=== PATIENT | male | born 1950 | race Caucasian/White ===

== ENCOUNTER 2024-12-22 14:36 | Emergency (ER) | payer OTHER, MEDICARE, SELFPAY ==
--- NOTE | ~2024-12-22 | XR_ITS ---
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 RESULT: Lines, tubes, and devices: None. Lungs and pleura: Clear. Cardiomediastinal silhouette: Unremarkable. Other: No acute osseous or upper abdominal finding. IMPRESSION: No acute cardiopulmonary process. Reviewed, dictated and finalized at location K. SUPERINTENDENT
--- NOTE | 2024-12-22 14:38 | ECG_ITS ---
Test Date: 2024-12-22 14:47:54 Measurements Intervals [place] Rate: 53 P: 37 MA: 190 QRS: -10 QRSD: 107 T: 41 QT: 435 QTc: 411 Interpretive Statements SINUS BRADYCARDIA No previous ECG available for comparison Electronically Signed On 12-22-2024 22:01:31 [employer]UL TRUCK DRIVER by Julissa Bullard M.D.
[2024-12-22 14:40] VITALS: BP 183/76; PULSE 62; RESP 18; TEMP 36.4; O2SAT 100
[2024-12-22 15:03] LABS: Basophils Percent Auto 0.3 % (0.2-1.2); Eosinophils Absolute Auto 0.1 K/mm3 (0-0.3); Eosinophils Percent Auto 0.7 % (0-4.4); Hematocrit 46.2 % (42.0-52.0); Immature Granulocyte Absolute 0.02 K/mm3 (0.00-0.031); Immature Granulocyte Percent A 0.2 % (0-0.5); Lymphocytes Absolute Auto 4.75 K/mm3 (0.9-3.2); Lymphocytes Percent Auto 43.4 % (18.3-44.2); Mean Corpuscular HGB Conc 34.6 g/dl (32-36); Mean Corpuscular Volume 86.7 fl (80-100); Mean Platelet Volume 10.5 fl (7.4-10.4); Monocytes Absolute Auto 1.1 K/mm3 (0.1-0.6); Monocytes Percent Auto 9.6 % (2.6-8.5); Neutrophils Percent Auto 45.8 % (45.5-73.1); Platelet Count Result 150 k/mm3 (150-375); Red Blood Count 5.33 M/mm3 (4.6-6.20); Red Cell Distribution Width 12.3 % (11.5-14.5); White Blood Count 10.9 K/mm3 (4.5-10.0)
[2024-12-22 15:12] LABS: Alanine Aminotransferase 27 U/L (6-50); Albumin Level 4.4 g/dL (3.5-5.1); Alkaline Phosphatase 54 U/L (38-126); Anion Gap 9 mmol/L (4-12); Aspartate Amino Transferase 39 U/L (17-59); Bilirubin,Total 1.7 mg/dL (0.2-1.3); Blood Urea Nitrogen 15 mg/dL (9-20); Calcium 9.3 mg/dL (8.4-10.2); Carbon Dioxide 26 mmol/L (22-30); Chloride 104 mmol/L (98-107); Estimated Glomerular Filt Rate > 60; Glucose 122 mg/dL (65-110); Lipase 100 U/L (23-300); Potassium 4.2 mmol/L (3.4-5.0); Sodium 139 mmol/L (137-145)
[2024-12-22 15:15] LABS: INR 1.1; Prothrombin Time 14.6 Seconds (11.1-14.7)
[2024-12-22 15:16] LABS: Partial Thromboplastin Time 24.2 Seconds (22.3-36.8)
[2024-12-22 15:23] LABS: Troponin I < 0.012 ng/mL (0.000-0.034)
--- NOTE | 2024-12-22 17:43 | ECG_ITS ---
Test Date: 2024-12-22 18:28:40 Measurements Intervals [place] Rate: 51 P: 0 ND: 0 QRS: -6 QRSD: 107 T: 40 QT: 446 QTc: 413 Interpretive Statements ATRIAL FIBRILLATION WITH SLOW VENTRICULAR RESPONSE ABNORMAL RHYTHM ECG Compared to ECG 12/22/2024 14:47:54 Sinus bradycardia no longer present Electronically Signed On 12-22-2024 22:00:05 SALESPERSON JEWELRY by Julissa Bullard M.D.
[2024-12-22 18:56] LABS: Troponin I < 0.012 ng/mL (0.000-0.034)
--- NOTE | 2024-12-22 19:47 | ED_ITS ---
HPI - Chest Pain General Chief Complaint: Chest Pain Stated Complaint: cp Time Seen by Provider: 12/22/24 19:44 Source: patient Mode of arrival: ambulatory Limitations: no limitations History of Present Illness HPI narrative: Patient is a 74-year-old male who presents the ED with multiple complaints. Patient reports having left-sided chest pressure intermittently for the last 3 days. Seems to notice the pressure more often at rest or when he is lying down to sleep. He denies aggravation of pressure with exertion. He has been exercising at home and denies aggravation of pain with this. Denies radiation of pain to neck, jaw, arm. Patient also reports having diffuse body aches, fatigue, urinary frequency, mild dysuria. Denies any shortness of breath, pleuritic pain, dizziness, lightheadedness, cough, congestion, rhinorrhea, fevers, lower extremity pain or swelling. Patient does not take any medications on a regular basis. Denies history of HTN, HLD, DM. He does have FHx of heart disease. Related Data Allergies Allergy/AdvReac Type Severity Reaction Status Date / Time No Known Allergies Allergy Verified 12/22/24 14:38 Review of Systems 2 Review of Systems: All systems reviewed & are unremarkable except as noted in HPI. All systems reviewed & are unremarkable except as noted in HPI and below Exam 2 Narrative: GENERAL: Well appearing, well-nourished, non-toxic, in no acute distress. HEAD: Normocephalic, atraumatic. RESPIRATORY: Airway patent, respirations nonlabored. Clear to auscultation bilaterally, no rales, rhonchi, wheezing. CARDIOVASCULAR: Regular rate and rhythm without murmurs, rubs, or gallops. ABDOMINAL: Soft, no tenderness, nondistended. Normoactive BS. MUSCULOSKELETAL: Moves all extremities. No gross deformities. No peripheral edema. No calf tenderness. No tenderness throughout anterior chest wall. SKIN: Warm, dry, normal color. NEURO: A&O X3. Speech clear. Cranial nerves II-XII grossly intact. Steady gait. No ataxic movements. PSYCHIATRIC: Appropriate mood and affect. Normal interaction. Course Vital Signs Vital signs: Vital Signs Temperature 97.6 F 12/22/24 14:40 Pulse Rate 62 12/22/24 14:40 Respiratory Rate 18 12/22/24 14:40 Blood Pressure 183/76 H 12/22/24 14:40 Pulse Oximetry 100 12/22/24 14:40 Oxygen Delivery Room Air 12/22/24 14:40 Temperature 97.6 F 12/22/24 14:40 Pulse Rate 56 L 12/22/24 20:32 Respiratory Rate 16 12/22/24 20:32 Blood Pressure 189/93 H 12/22/24 20:32 Pulse Oximetry 96 12/22/24 20:32 Oxygen Delivery Room Air 12/22/24 20:28 MDM - Chest Pain MDM Narrative Medical decision making narrative: EKG nonischemic X2. Sinus bradycardia, no significant ST changes. Trop undetectable X3. Patient's pain has been ongoing for the past 3 days. Given this, very low suspicion for ACS. CXR is clear. HEART score =3. Low risk Well's score, no evidence of DVT, no SOB/GUILLEN, no tachycardia/tachypnea/hypoxia. Low suspicion for PE. Remainder basic laboratory studies are unremarkable. Stable electrolytes. Viral swabs negative. Discussed overall reassuring workup with patient. Feel he is safe for discharge home at this time. Discussed possibility of viral syndrome, musculoskeletal etiology. Recommended close follow-up with PCP for further evaluation within the next 1 week. Advised to discuss outpatient stress testing with PCP as patient does have some risk factors. Discussed strict return precautions. Patient voiced understanding. He feels comfortable going home. Discharged in stable condition. Medical Records Data Attestation: I reviewed the patient's medical records. Lab Data Attestation: I reviewed the patient's lab results. 12/22/24 14:54 12/22/24 14:54 Labs: Lab Results 12/22/24 12/22/24 12/22/24 Range/Units 14:54 14:55 18:24 WBC 10.9 H (4.5-10.0) K/mm3 RBC 5.33 (4.6-6.20) M/mm3 Hgb 16.0 (14.0-18.0) g/dL Hct 46.2 (42.0-52.0) % MCV 86.7 (80-100) fl MCH 30.0 (26-34) pg MCHC 34.6 (32-36) g/dl RDW 12.3 (11.5-14.5) % Plt Count 150 (150-375) k/mm3 MPV 10.5 H (7.4-10.4) fl Immature Gran % (Auto) 0.2 (0-0.5) % Neut % (Auto) 45.8 (45.5-73.1) % Lymph % (Auto) 43.4 (18.3-44.2) % Beaver % (Auto) 9.6 H (2.6-8.5) % Eos % (Auto) 0.7 (0-4.4) % Baso % (Auto) 0.3 (0.2-1.2) % Lymph # (Auto) 4.75 H (0.9-3.2) K/mm3 Beaver # (Auto) 1.1 H (0.1-0.6) K/mm3 Eos # (Auto) 0.1 (0-0.3) K/mm3 Baso # (Auto) 0.0 (0.0-0.1) K/mm3 Abs Immat Gran (auto) 0.02 (0.00-0.031) K/mm3 Absolute Neuts (auto) 5.0 (1.3-6.7) K/mm3 Absolute Nucleated RBC 0.000 (0.0-0.012) K/mm3 Nucleated RBC % 0.0 (0.0-0.2) % PT 14.6 (11.1-14.7) Seconds INR 1.1 APTT 24.2 (22.3-36.8) Seconds Sodium 139 (137-145) mmol/L Potassium 4.2 (3.4-5.0) mmol/L Chloride 104 (98-107) mmol/L Carbon Dioxide 26 (22-30) mmol/L Anion Gap 9 (4-12) mmol/L BUN 15 (9-20) mg/dL Creatinine 0.83 (0.7-1.3) mg/dL Estim Creat Clear Calc Not Reportable Estimated GFR > 60 (59 - ) Glucose 122 H (65-110) mg/dL Calcium 9.3 (8.4-10.2) mg/dL Magnesium 2.3 (1.6-2.3) mg/dL Total Bilirubin 1.7 H (0.2-1.3) mg/dL AST 39 (17-59) U/L ALT 27 (6-50) U/L Alkaline Phosphatase 54 (38-126) U/L Troponin I < 0.012 < 0.012 (0.000-0.034) ng/mL Total Protein 7.0 (6.3-8.2) g/dL Albumin 4.4 (3.5-5.1) g/dL Lipase 100 (23-300) U/L Urine Color (Yellow) Urine Appearance (Clear) Urine pH (5.0-9.0) Ur Specific [place] (1.001-1.035) Urine Protein (Negative) mg/dL Urine Glucose (UA) (Negative) mg/dL Urine Ketones (Negative) mg/dL Ur Blood (Man) (Negative) Urine Nitrate (Negative) Urine Bilirubin (Negative) Urine Urobilinogen (<2.0) mg/dL Leukocyte Esterase Rfl (Negative) DEON/UL Influenza A (RT-PCR) (Negative) Influenza B (RT-PCR) (Negative) RSV (RT-PCR) (Negative) SARS-CoV-2 RNA (RT-PCR) (Negative) 12/22/24 12/22/24 Range/Units 19:56 21:05 WBC (4.5-10.0) K/mm3 RBC (4.6-6.20) M/mm3 Hgb (14.0-18.0) g/dL Hct (42.0-52.0) % MCV (80-100) fl MCH (26-34) pg MCHC (32-36) g/dl RDW (11.5-14.5) % Plt Count (150-375) k/mm3 MPV (7.4-10.4) fl Immature Gran % (Auto) (0-0.5) % Neut % (Auto) (45.5-73.1) % Lymph % (Auto) (18.3-44.2) % Beaver % (Auto) (2.6-8.5) % Eos % (Auto) (0-4.4) % Baso % (Auto) (0.2-1.2) % Lymph # (Auto) (0.9-3.2) K/mm3 Beaver # (Auto) (0.1-0.6) K/mm3 Eos # (Auto) (0-0.3) K/mm3 Baso # (Auto) (0.0-0.1) K/mm3 Abs Immat Gran (auto) (0.00-0.031) K/mm3 Absolute Neuts (auto) (1.3-6.7) K/mm3 Absolute Nucleated RBC (0.0-0.012) K/mm3 Nucleated RBC % (0.0-0.2) % PT (11.1-14.7) Seconds INR APTT (22.3-36.8) Seconds Sodium (137-145) mmol/L Potassium (3.4-5.0) mmol/L Chloride (98-107) mmol/L Carbon Dioxide (22-30) mmol/L Anion Gap (4-12) mmol/L BUN (9-20) mg/dL Creatinine (0.7-1.3) mg/dL Estim Creat Clear Calc Estimated GFR (59 - ) Glucose (65-110) mg/dL Calcium (8.4-10.2) mg/dL Magnesium (1.6-2.3) mg/dL Total Bilirubin (0.2-1.3) mg/dL AST (17-59) U/L ALT (6-50) U/L Alkaline Phosphatase (38-126) U/L Troponin I < 0.012 (0.000-0.034) ng/mL Total Protein (6.3-8.2) g/dL Albumin (3.5-5.1) g/dL Lipase (23-300) U/L Urine Color Yellow (Yellow) Urine Appearance Clear (Clear) Urine pH 6.0 (5.0-9.0) Ur Specific [place] 1.010 (1.001-1.035) Urine Protein Negative (Negative) mg/dL Urine Glucose (UA) Negative (Negative) mg/dL Urine Ketones Trace H (Negative) mg/dL Ur Blood (Man) Negative (Negative) Urine Nitrate Negative (Negative) Urine Bilirubin Negative (Negative) Urine Urobilinogen 1.0 (<2.0) mg/dL Leukocyte Esterase Rfl Negative (Negative) DEON/UL Influenza A (RT-PCR) Negative (Negative) Influenza B (RT-PCR) Negative (Negative) RSV (RT-PCR) Negative (Negative) SARS-CoV-2 RNA (RT-PCR) Negative (Negative) Imaging Data Attestation: I personally reviewed and interpreted this imaging study as follows: Radiologist's impression: ITS Impressions Chest X-Ray 12/22/24 15:24 IMPRESSION: No acute cardiopulmonary process. ECG Data EKG #1: Attestation: I personally reviewed and interpreted this ECG as follows: ECG completion date: 12/22/24 ECG completion time: 14:47 EKG Interpretation: bradycardia (53), sinus rhythm and non-specific ST changes Discharge Plan Discharge Clinical Impression: Atypical chest pain, Myalgia Fatigue Qualifiers: Fatigue type: unspecified Qualified Code(s): R53.83 - Other fatigue Patient Disposition: Home, Self-Care Condition: Stable Instructions: Antibiotic Form, Angina (ED), Chest Pain (ED), Viral Syndrome (ED) Additional Instructions: Your workup here was reassuring. Stay well hydrated at home. Recommend Tylenol and ibuprofen as needed for discomfort. Follow-up closely with your primary care doctor for further evaluation and to discuss potential outpatient cardiac stress testing. Return to the ED if you experience worsening or severe pain, difficulty breathing or feeling short of breath, unable to keep down food or drink, persistent fevers, coughing blood, pain or swelling in legs, numbness or weakness of arm or leg, or any other symptoms of concern. Patient Language: Ukrainian Follow-up/Referrals: PHYSICIAN NOT ON STAFF,NONSTAFF [Primary Care Provider] - Time of Disposition: 22:02 Quality HEART score for chest pain patients History: slightly suspicious ECG: normal Age: > or = to 65 years Risk factors: 1 or 2 risk factors Troponin: < or = to 1x normal limit Heart score: 3
[2024-12-22] MEDS: ASPIRIN 81 MG CHEWABLE TABLET 324 MG PO (20:24)
[2024-12-22] MEDS: ASPIRIN 81 MG CHEWABLE TABLET 324 MG (20:26)
[2024-12-22 20:28] VITALS: O2SAT 98
[2024-12-22 20:32] VITALS: BP 189/93; PULSE 56; RESP 16; O2SAT 96
[2024-12-22 20:36] LABS: Influenza A QL RT-PCR Negative (Negative); Influenza B QL RT-PCR Negative (Negative); RSV RNA, RT-PCR Negative (Negative); SARS-CoV-2 RNA PCR Negative (Negative)
--- OUTSIDE RECORDS SUMMARY | 2024-12-22 20:42 | XMS_ITS | Encounter Summary ---
Author Name [facility] Organization [facility] Address [address] [place] [address] Care Team Providers Care Planner/Scheduler Name Role Phone JORGE ROLAND Primary Care Provider Unavailabl e Insurance Providers: All historical and current Section Date Range: From patient's date of to the date document was created. This section includes the names of all active insurance providers for the patient. Insurance Provider Type of Coverage Plan Name Start of Policy Coverage End of Policy Coverage Group Number Member ID Insurance Provider's Telephone Number Policy Hernández's Name Patient's Relationship to Policy Hernández MEDICARE (WNR) MEDICARE (M) PART A Aug 27, 2016 PART A [id number] DIANEGALI HARRIS PATIENT MEDICARE (WNR) MEDICARE (M) PART B Aug 27, 2016 PART B [id number] [phone] DIANEGALI OLIVIA PATIENT Selected Encounter This section includes the information on record at [place] for the Encounter. Date/Time Encounter Type Encounter Description Reason Pro vider Source Jul 09, 2024 02:34 PM Outpatient Encounter ADMIN PAT ACTIVTIES (MASNONCT) I[facility] Encounter Template Text not used by [facility] Plan of Treatment: Future Appointments (+ 6 months) and Future Tests (+/- 45 days) The Plan of Treatment section includes future care activities for the patient from all [facility] treatmentfacilities. This section includes future appointments and future orders which are active, pending or scheduled. Future Appointments This section includes appointments that were scheduled to occur 6 months from the date of the Encounter, up to a maximum of 20 appointments. The data comes from all [place] treatment facilities. Appointment Date/Time Appointment Type Appointme nt Facility Name Sep 05, 2024 12:00 PM [facility]BULATORY - NONE [facility] Active, Pending, and Scheduled Orders This section includes a listing of several types of active, pending, and scheduled orders, including clinic medications orders, diagnostic test orders, procedure orders and consult orders; where the start date of the order is 45 days before the date of the Encounter or 45 days after the date of theEncounter. The data comes from all [facility]. Test Date/Time Test Type Test Details Facility Name Jul 04, 2024 12:00 AM Laboratory - Chemi stry Order CBC W/DIFF BLOOD SP ONCE [facility] Lab Results: +/- 30 days of the encounter This section includes the Chemistry and Hematology Lab Results on record with [place] for the patient. Radiology Reports and Pathology Reports are provided separately, in subsequent sections. Lab Results This section contains the Chemistry/Hematology Results that were resulted 30 days before or 30 daysafter the date of the Encounter. Date/Time Source Result Type Result - Unit Interpretation Reference Range Comment Jun 27, 2024 10:05 AM [facility] A1C % Specimen Type: BLOOD Comment: Normal: < or = 5.6% Pre-diabetes: 5.7-6.4% Diabetes Mellitus: > or = 6.5% Values obtained from A1C measurements can vary. For typical A1C assays, a reported value of 7.0 could actually be between 6.72 and 7.28 if measured by a reference method. A reported value of 9.0 could actually be between 8.73 and 9.27. Ref: http://www.ngs p.org/CAPdata. asp Ordering Provider: SHYANNE ISAAC Report Released Date/Time: Jul 06, 2023 11:20 AM Reporting Lab: [facility] [address] [facility] [address] Performing Lab: [address] [address] A1C % 5.6 0.0-5.6 Jun 27, 2024 10:05 AM [facility] LIPID PNL Specimen Type: PLASMA Comment: Low-risk levels (desirable) <200 mg/dL Moderate-risk levels (borderline) 200-239 mg/dL High-risk levels: >= 240 mg/dL Normal: <150 mg/dL -Borderline High: 1580-199 mg/dL -High: 200-499 mg/dL -Very High: >500 mg/dL eGFR was calculated using the CKD-EPI Creatinine (2020) equation. Optimal: <100 mg/dL -Near Optimal/Above Optimal: 100-129 mg/dL -Borderline High: 130-159 mg/dL -High: 160-189 mg/dL -Very High: >=190 mg/dL Ordering Provider: SHYANNE ISAAC Report Released Date/Time: Jul 06, 2023 11:20 AM Reporting Lab: [address] [address] Performing Lab: [address] [phone] DIR. HDL 45 mg/dL L >=60 TRIGLYCERIDES 59 mg/dL See Comment DIR LDL canc CHOL 155 mg/dL See Comment LDL (CALCULATED) 98 mg/dL See Comment Jun 27, 2024 10:05 AM [facility] URINE ALBUMIN/CREAT (RAND URINE) Specimen Type: URINE Comment: MALB/CREAT ratio cannot be calculated-azalea lyte outside linearity. Ordering Provider: SHYANNE ISAAC Report Released Date/Time: Jul 06, 2023 11:20 AM Reporting Lab: [address] [address] Performing Lab: [address] [address] URINE ALBUMIN(RAND URINE) <0.3 mg/dL <2.0 CREAT(RNDM URINE) 28.90 mg/dL L 40-278 CREAT RATIO (RNDM URINE) comment mg/g <30 Jun 27, 2024 10:05 AM [facility] THYROID CASCADE PANEL Specimen Type: SERUM Comment: Deficiency <20, Insufficiency 20-30, Sufficiency 30-100, Toxicity >100 ng/mL Ordering Provider: SHYANNE ISAAC Report Released Date/Time: Jul 06, 2023 11:20 AM Reporting Lab: [address] [phone] Performing Lab: [address] [address] TSH3 ULTRA EIA 2.752 u[IU]/mL 0.550-4.78 0 Jun 27, 2024 10:05 AM [facility] COMPREHENSIVE PNL Specimen Type: PLASMA Comment: Low-risk levels (desirable) <200 mg/dL Moderate-risk levels (borderline) 200-239 mg/dL High-risk levels: >= 240 mg/dL Normal: <150 mg/dL -Borderline High: 1580-199 mg/dL -High: 200-499 mg/dL -Very High: >500 mg/dL eGFR was calculated using the CKD-EPI Creatinine (2020) equation. Optimal: <100 mg/dL -Near Optimal/Above Optimal: 100-129 mg/dL -Borderline High: 130-159 mg/dL -High: 160-189 mg/dL -Very High: >=190 mg/dL Ordering Provider: SHYANNE ISAAC Report Released Date/Time: Jul 06, 2023 11:20 AM Reporting Lab: [address] [phone] Performing Lab: [address] [address] ANION GAP 9 mmol/L 5-15 EGFR 87 mL/min > 60 GLUCOSE 95 mg/dL 70-99 POTASSIUM 4.2 mmol/L 3.5-4.7 SODIUM 144 mmol/L 136-145 BILI,TOTAL 1.0 mg/dL 0.2-1.2 PROTEIN, TOTL 6.9 g/dL 5.7-8.2 ALBUMIN 4.3 g/dL 3.4-5.0 ALKAL PHOS 54 U/L 45-117 ALT 26 U/L 10-65 AST 26 U/L 10-37 UREA NITROGEN 10 mg/dL 7-21 CALCIUM, TOTAL 8.8 mg/dL 8.7-10.4 CO2 25 mmol/L 21-32 CHLORIDE 110 mmol/L H 98-109 CREATININE 0.93 mg/dL 0.67-1.17 Jun 27, 2024 10:05 AM [facility] VITAMIN D 25-HYDROXY Specimen Type: SERUM Comment: Deficiency <20, Insufficiency 20-30, Sufficiency 30-100, Toxicity >100 ng/mL Ordering Provider: SHYANNE ISAAC Report Released Date/Time: Jul 06, 2023 11:20 AM Reporting Lab: [address] [address] Performing Lab: [address] [address] VITAMIN D 25-HYDROXY 68.80 ng/mL 30-100 Advance Directives: All historical and current Section Date Range: From patient's date of to the date document was created. This section includes ALL of a patient's completed or amended VA Advance and Rescinded Directives. The entries below indicate that a directive exists for the patient, but an actual copy is not included with this document. The data comes from all [place] facilities. Date Advance Directives Provider Source Aug 28, 2015 ADVANCE DIRECTIVE DISCUSSION [facility] Encounter Notes: All associated encounter notes This section contains the clinical notes associated to the Encounter. Date/Time Encounter Note(s) Provider Source Jul 09, 2024 02:34 PM PHYSICIAN NOTE: LOCAL TITLE: PROVIDER/MEDICATION RECONCILIATION STANDARD TITLE: PHYSICIAN NOTE DATE OF NOTE: JUL 09, 2024@14:34:15 ENTRY DATE: JUL 09, 2024@14:34:16 AUTHOR: JORGE ROLAND COSIGNER: URGENCY: STATUS: COMPLETED [address] [address] [place]UR[place] JUL 09, [address] [place] [address] [place], [place] [address] Patient: BURT CONTRERAS (: 1950) A list of reconciled medications was mailed or sent via secure messaging to the /Caregiver. The following medication list was reviewed with the patient/caregiver: The [place]/caregiver was counseled on new medications and/or medication changes. Potential risks, benefits, and alternative to medications prescribed were discussed with /caregiver who was given an opportunity to ask questions, which were answered to the best of my ability and seemingly to their satisfaction. /caregiver was/were instructed to contact provider (means provided) with any concerns or questions. INCLUDED IN THIS LIST: Alphabetical list of active outpatient prescriptions dispensed from this [facility] (local) and dispensed from another VA or [facility]D facility (remote) as well as inpatient orders (local pending and active), local clinic medications, locally documented non-VA medications, and local prescriptions that have or been discontinued in the past 90 days. NOTE The display of VA prescriptions dispensed from another VA or DoD facility (remote) is limited to active outpatient prescription entries matched to National Drug File at the originating site and may not include some items such as investigational drugs, compounds, etc. NOT INCLUDED IN THIS LIST: Medications self-entered by the patient into personal health records (i.e. [employer]) are not included in this list. Non-VA medications documented outside this [place], remote inpatient orders (regardless of status) and remote clinic medications are NOT included in this list. The patient and provider must always discuss medications the patient is taking, regardless of where the medication was dispensed or obtained. Patient safety alert: Medications and allergies from [facility] facilities may be incomplete. Reference [facility] for full list. Allergies/ADRs Facility Allergen (Reaction) -------- [facility] INFLUENZA (RASH) [facility] Facilities No Allergy/ADR Data available Med Reconciliation --- Patient is taking the following medications: --- CYCLOBENZAPRINE HCL 10MG TAB (OUTPT Status: ACTIVE) Take one-half tablet by mouth two times a day as needed for muscle spasm Usually Taken for: Muscle relaxer GABAPENTIN 800MG TAB (OUTPT Status: ACTIVE) Take one tablet by mouth every 8 hours as needed Usually Taken for: Pain/Neuropathy KETOCONAZOLE 2% CREAM,TOP (NON-VA Status: ACTIVE) Thin film topically Usually Taken for: Infection LIDOCAINE 5% PATCH (OUTPT Status: ACTIVE) Rau4pjtoznneewbiftaapdc,hairlessareae verydayasneededforpain ud[id number] oheatactivatethe adhesive. remove patch(es) after 12 hours and leave off for 12 hours. Usually Taken for: Pain NAPROXEN 500MG TAB (OUTPT Status: ACTIVE) Takeonetabletbymouthtwotimesadayasnee dedforpainandinflammation withfoodifpossible Usually Taken for: Pain RITUXIMAB INJ,SOLN (NON-VA Status: ACTIVE) 13.4 ml under the skin every 30 days Usually Taken for: Chemotherapy/Immunosuppressant /es/ JORGE ROLAND Physician Assembler Filters Date printed: JUL 09, 2024 15:13 JORGE Arce [facility]
--- OUTSIDE RECORDS SUMMARY | 2024-12-22 20:42 | XMS_ITS | Continuity of Care Document ---
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 It does not include entries that were removed or entered in error. Problem Status Onset Date Problem Type Date of Resolution Comments Source Tinea Active 9 Condition Nov 17, 2019 Entered By: CECILE GARZA Comment: presents with id reaction as well [facility] History of chronic lymphocytic leukemia (SNOMED CT [id number]) Active 6 Condition [facility] CLBP - chronic low back pain Active Condition [facility] Elevated blood pressure Active Condition [facility] Elevated blood-pressure reading without diagnosis of hypertension Active Condition [facility] Insomnia Active Condition [facility] Polyp of colon Active Condition Jun 282015 Entered By: JUANA BURGOS Comment: last c-scope 2015 w/ f/up in 5 yrs [facility] Diagnosis: ICD-10-CM Z00.01 Encounter for general adult medical exam w abnormal findings Active Diagnosis [facility] Diagnosis: ICD-10-CM Z71.89 Other specified counseling Active Diagnosis [facility] Diagnosis: ICD-10-CM R03.0 Elevated blood-pressure reading, w/o diagnosis of htn Active Diagnosis [facility] Diagnosis: ICD-10-CM M54.51 Vertebrogenic low back pain Active Diagnosis [facility] Diagnosis: ICD-10-CM M54.41 Lumbago with sciatica, right side Active Diagnosis [facility] Diagnosis: ICD-10-CM C91.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 Medication Details Route Status Patient Instructions Prescription Expires Prescription Number Last Dispense Date Ordering Provider Order Date Order Qty Source CYCLOBENZAP RINE HCL 10MG TAB TAKE ONE-HALF TABLET BY MOUTH TWO TIMES A DAY NEEDED FOR MUSCLE SPASM ORAL DISCONT INUED BY PROVIDE R 10/23/2024 [id number] 3 HÉCTOR ISAAC 2022 30 [facility] GABAPENTIN 800MG TAB TAKE ONE TABLET BY MOUTH EVERY 8 HOURS NEEDED ORAL DISCONT INUED BY PROVIDE R 10/23/2024 [id number] 3 HÉCTOR ISAAC 2022 90 [facility] GABAPENTIN 800MG TAB TAKE ONE TABLET BY MOUTH EVERY 8 HOURS NEEDED ORAL DISCONT INUED 09/05/2024 [id number] 3 HÉCTOR ISAAC 2022 90 [facility] KETOCONAZOL E 2% CREAM,TOP APPLY THIN FILM TOPICALL Y TOPICA L ACTIVE ASUNCION,CRYST AL L 2023 [facility] (550GG) LIDOCAINE 5% PATCH USE 1 PATCH TOPICALL Y TO DRY, HAIRLESS AREA EVERY DAY NEEDED FOR PAIN PRESS PATCH ONTO THE SKIN FOR 10-15 SECONDS TO HEAT ACTIVATE THE ADHESIVE . REMOVE PATCH(ES ) AFTER 12 HOURS AND LEAVE OFF FOR 12 HOURS. TRANSD ERMAL ACTIVE 10/24/2025 [id number] ASUNCION,CRYST AL L 2023 30 [facility] NAPROXEN 500MG TAB TAKE ONE TABLET BY MOUTH TWO TIMES A DAY NEEDED FOR PAIN AND INFLAMMA TION WITH FOOD IF POSSIBLE ORAL DISCONT INUED BY PROVIDE R 10/23/2024 [id number] 3 HÉCTOR ISAAC 2022 60 [facility] RITUXIMAB INJ,SOLN INJECT 13.4 ML UNDER THE SKIN EVERY 30 DAYS SUBCUT ANEOUS ACTIVE CHRISTOPHER GARZA 2018 [facility] ZOLPIDEM TARTRATE 10MG TAB TAKE ONE TABLET BY MOUTH AT BEDTIME NEEDED ORAL 03/07/2024 [id number] 3 HÉCTOR ISAAC 2022 30 [facility] Allergies, Adverse Reactions, Alerts Combined list of allergies from Department of Defense and Veterans Affairs facilities. It does not include entries that were removed or entered in error. Substance Category Reaction Severity Reaction type Status Date Reported Comments Source INFLUENZA Propensity to adverse reactions to drug (finding) Eruption SEVERE active 12/05/2023 [facility] Immunizations Combined list of available immunizations from the Department of Defense and Veterans Affairs facilities. Immunization Series Date Given Administered By Site Reaction Lot Number CVX Code Drug Splunk Developer Status Comments Source INFLUENZA, TRIVALENT, ADJUVANTED 2018 168 complet ed [facility] IELD [facility] TDAP 2012 115 complet ed [facility] N TDAP 2009 115 complet ed [facility] Results Combined list of recent chemistry, hematology and other laboratory results from Department of Defense and Veterans Affairs, ranging from 15 months to all on record, depending upon the facility. Order Name Results Value Reference Range Date Interpretation Specimen Comments Source A1C % HEMOGLOBIN A1C/HEMOGLO BIN.TOTAL IN BLOOD 5.6 0.0 - 5.6 06/27 Specimen Type: BLOOD Comment: Normal: < or = 5.6% Pre-diabete s: 5.7-6.4% Diabetes Mellitus: > or = 6.5% Values obtained from A1C measurement s can vary. For typical A1C assays, a reported value of 7.0 could actually be between 6.72 and 7.28 if measured by a reference method. A reported value of 9.0 could actually be between 8.73 and 9.27. Ref: http://www. ngsp.org/[place] Pdata.asp Ordering Provider: TIARA ISAAC Report Released Date/Time: Jul 06, 2023 11:20 AM Reporting Lab: [address] [address] Performing Lab: [address] [address] [facility] LIPID PNL CHOLESTEROL IN HDL [MASS/VOLUM E] IN SERUM OR PLASMA 45 mg/dL 60 06/27 L Specimen Type: PLASMA Comment: Low-risk levels (desirable) <200 mg/dL Moderate-ri sk levels (borderline ) 200-239 mg/dL High-risk levels: >= 240 mg/dL Normal: <150 mg/dL -Borderline High: 1580-199 mg/dL -High: 200-499 mg/dL -Very High: >500 mg/dL eGFR was calculated using the CKD-EPI Creatinine (2020) equation. Optimal: <100 mg/dL -Near Optimal/Abo ve Optimal: 100-129 mg/dL -Borderline High: 130-159 mg/dL -High: 160-189 mg/dL -Very High: >=190 mg/dL Ordering Provider: TIARA ISAAC Report Released Date/Time: Jul 06, 2023 11:20 AM Reporting Lab: [address] [address] Performing Lab: [address] [address] [facility] LIPID PNL TRIGLYCERID E [MASS/VOLUM E] IN SERUM OR PLASMA 59 mg/dL 06/27 Specimen Type: PLASMA Comment: Low-risk levels (desirable) <200 mg/dL Moderate-ri sk levels (borderline ) 200-239 mg/dL High-risk levels: >= 240 mg/dL Normal: <150 mg/dL -Borderline High: 1580-199 mg/dL -High: 200-499 mg/dL -Very High: >500 mg/dL eGFR was calculated using the CKD-EPI Creatinine (2020) equation. Optimal: <100 mg/dL -Near Optimal/Abo ve Optimal: 100-129 mg/dL -Borderline High: 130-159 mg/dL -High: 160-189 mg/dL -Very High: >=190 mg/dL Ordering Provider: TIARA ISAAC Report Released Date/Time: Jul 06, 2023 11:20 AM Reporting Lab: [address] [address] Performing Lab: [address] [address] [facility] LIPID PNL CHOLESTEROL IN LDL [MASS/VOLUM E] IN SERUM OR PLASMA BY DIRECT ASSAY can 06/27 Specimen Type: PLASMA Comment: Low-risk levels (desirable) <200 mg/dL Moderate-ri sk levels (borderline ) 200-239 mg/dL High-risk levels: >= 240 mg/dL Normal: <150 mg/dL -Borderline High: 1580-199 mg/dL -High: 200-499 mg/dL -Very High: >500 mg/dL eGFR was calculated using the CKD-EPI Creatinine (2020) equation. Optimal: <100 mg/dL -Near Optimal/Abo ve Optimal: 100-129 mg/dL -Borderline High: 130-159 mg/dL -High: 160-189 mg/dL -Very High: >=190 mg/dL Ordering Provider: TIARA ISAAC Report Released Date/Time: Jul 06, 2023 11:20 AM Reporting Lab: [address] [address] Performing Lab: [address] [address] [facility] LIPID PNL CHOLESTEROL [MASS/VOLUM E] IN SERUM OR PLASMA 155 mg/dL 06/27 Specimen Type: PLASMA Comment: Low-risk levels (desirable) <200 mg/dL Moderate-ri sk levels (borderline ) 200-239 mg/dL High-risk levels: >= 240 mg/dL Normal: <150 mg/dL -Borderline High: 1580-199 mg/dL -High: 200-499 mg/dL -Very High: >500 mg/dL eGFR was calculated using the CKD-EPI Creatinine (2020) equation. Optimal: <100 mg/dL -Near Optimal/Abo ve Optimal: 100-129 mg/dL -Borderline High: 130-159 mg/dL -High: 160-189 mg/dL -Very High: >=190 mg/dL Ordering Provider: TIARA ISAAC Report Released Date/Time: Jul 06, 2023 11:20 AM Reporting Lab: [address] [address] Performing Lab: [address] [address] [facility] LIPID PNL CHOLESTEROL IN LDL [MASS/VOLUM E] IN SERUM OR PLASMA BY CALCULATION 98 mg/dL 06/27 Specimen Type: PLASMA Comment: Low-risk levels (desirable) <200 mg/dL Moderate-ri sk levels (borderline ) 200-239 mg/dL High-risk levels: >= 240 mg/dL Normal: <150 mg/dL -Borderline High: 1580-199 mg/dL -High: 200-499 mg/dL -Very High: >500 mg/dL eGFR was calculated using the CKD-EPI Creatinine (2020) equation. Optimal: <100 mg/dL -Near Optimal/Abo ve Optimal: 100-129 mg/dL -Borderline High: 130-159 mg/dL -High: 160-189 mg/dL -Very High: >=190 mg/dL Ordering Provider: TIARA ISAAC Report Released Date/Time: Jul 06, 2023 11:20 AM Reporting Lab: [address] [address] Performing Lab: [address] [address] [facility] URINE ALBUMIN/C REAT (CEDAR URINE) MICROALBUMI N [MASS/VOLUM E] IN URINE <0.3mg /dL <2.0 - 2.0 06/27 Specimen Type: URINE Comment: MALB/CREAT ratio cannot be calculated- analyte outside linearity. Ordering Provider: TIARA ISAAC Report Released Date/Time: Jul 06, 2023 11:20 AM Reporting Lab: [address] [address] Performing Lab: [address] [address] [facility] URINE ALBUMIN/C REAT (CEDAR URINE) CREATININE [MASS/VOLUM E] IN URINE 28.90 mg/dL 40 - 278 06/27 L Specimen Type: URINE Comment: MALB/CREAT ratio cannot be calculated- analyte outside linearity. Ordering Provider: TIARA ISAAC Report Released Date/Time: Jul 06, 2023 11:20 AM Reporting Lab: [address] [address] Performing Lab: [address] [address] [facility] URINE ALBUMIN/C REAT (CEDAR URINE) MICROALBUMI N/CREATININ E [RATIO] IN URINE commen tmg/g <30 - 30 06/27 Specimen Type: URINE Comment: MALB/CREAT ratio cannot be calculated- analyte outside linearity. Ordering Provider: TIARA ISAAC Report Released Date/Time: Jul 06, 2023 11:20 AM Reporting Lab: [address] [address] Performing Lab: [address] [address] [facility] THYROID CASCADE PANEL THYROTROPIN [UNITS/VOLU ME] IN SERUM OR PLASMA 2.752 u[IU]/ mL 0.550 - 4.780 06/27 Specimen Type: SERUM Comment: Deficiency <20, Insufficien cy 20-30, Sufficiency 30-100, Toxicity >100 ng/mL Ordering Provider: TIARA ISAAC Report Released Date/Time: Jul 06, 2023 11:20 AM Reporting Lab: [address] [address] Performing Lab: [address] [address] [facility] COMPREH SIVE PNL ANION GAP IN SERUM OR PLASMA 9 mmol/L 5 - 15 06/27 Specimen Type: PLASMA Comment: Low-risk levels (desirable) <200 mg/dL Moderate-ri sk levels (borderline ) 200-239 mg/dL High-risk levels: >= 240 mg/dL Normal: <150 mg/dL -Borderline High: 1580-199 mg/dL -High: 200-499 mg/dL -Very High: >500 mg/dL eGFR was calculated using the CKD-EPI Creatinine (2020) equation. Optimal: <100 mg/dL -Near Optimal/Abo ve Optimal: 100-129 mg/dL -Borderline High: 130-159 mg/dL -High: 160-189 mg/dL -Very High: >=190 mg/dL Ordering Provider: TIARA ISAAC Report Released Date/Time: Jul 06, 2023 11:20 AM Reporting Lab: [address] [address] Performing Lab: [address] [address] [facility] COMPREH SIVE PNL GLOMERULAR FILTRATION RATE/1.73 SQ M.PREDICTED [VOLUME RATE/AREA] IN SERUM, PLASMA OR BLOOD BY CREATININE- BASED FORMULA (CKD-EPI 2020) 87 mL/min 60 06/27 Specimen Type: PLASMA Comment: Low-risk levels (desirable) <200 mg/dL Moderate-ri sk levels (borderline ) 200-239 mg/dL High-risk levels: >= 240 mg/dL Normal: <150 mg/dL -Borderline High: 1580-199 mg/dL -High: 200-499 mg/dL -Very High: >500 mg/dL eGFR was calculated using the CKD-EPI Creatinine (2020) equation. Optimal: <100 mg/dL -Near Optimal/Abo ve Optimal: 100-129 mg/dL -Borderline High: 130-159 mg/dL -High: 160-189 mg/dL -Very High: >=190 mg/dL Ordering Provider: TIARA ISAAC Report Released Date/Time: Jul 06, 2023 11:20 AM Reporting Lab: [address] [address] Performing Lab: [address] [address] [facility] COMPREHEN SIVE PNL GLUCOSE [MASS/VOLUM E] IN SERUM OR PLASMA 95 mg/dL 70 - 99 06/27 Specimen Type: PLASMA Comment: Low-risk levels (desirable) <200 mg/dL Moderate-ri sk levels (borderline ) 200-239 mg/dL High-risk levels: >= 240 mg/dL Normal: <150 mg/dL -Borderline High: 1580-199 mg/dL -High: 200-499 mg/dL -Very High: >500 mg/dL eGFR was calculated using the CKD-EPI Creatinine (2020) equation. Optimal: <100 mg/dL -Near Optimal/Abo ve Optimal: 100-129 mg/dL -Borderline High: 130-159 mg/dL -High: 160-189 mg/dL -Very High: >=190 mg/dL Ordering Provider: TIARA ISAAC Report Released Date/Time: Jul 06, 2023 11:20 AM Reporting Lab: [address] [address] Performing Lab: [address] [address] [facility] SIVE PNL POTASSIUM [MOLES/VOLU ME] IN SERUM OR PLASMA 4.2 mmol/L 3.5 - 4.7 06/27 Specimen Type: PLASMA Comment: Low-risk levels (desirable) <200 mg/dL Moderate-ri sk levels (borderline ) 200-239 mg/dL High-risk levels: >= 240 mg/dL Normal: <150 mg/dL -Borderline High: 1580-199 mg/dL -High: 200-499 mg/dL -Very High: >500 mg/dL eGFR was calculated using the CKD-EPI Creatinine (2020) equation. Optimal: <100 mg/dL -Near Optimal/Abo ve Optimal: 100-129 mg/dL -Borderline High: 130-159 mg/dL -High: 160-189 mg/dL -Very High: >=190 mg/dL Ordering Provider: TIARA ISAAC Report Released Date/Time: Jul 06, 2023 11:20 AM Reporting Lab: [address] [address] Performing Lab: [address] [address] [facility] COMPREHEN SIVE PNL SODIUM [MOLES/VOLU ME] IN SERUM OR PLASMA 144 mmol/L 136 - 145 06/27 Specimen Type: PLASMA Comment: Low-risk levels (desirable) <200 mg/dL Moderate-ri sk levels (borderline ) 200-239 mg/dL High-risk levels: >= 240 mg/dL Normal: <150 mg/dL -Borderline High: 1580-199 mg/dL -High: 200-499 mg/dL -Very High: >500 mg/dL eGFR was calculated using the CKD-EPI Creatinine (2020) equation. Optimal: <100 mg/dL -Near Optimal/Abo ve Optimal: 100-129 mg/dL -Borderline High: 130-159 mg/dL -High: 160-189 mg/dL -Very High: >=190 mg/dL Ordering Provider: TIARA ISAAC Report Released Date/Time: Jul 06, 2023 11:20 AM Reporting Lab: [address] [address] Performing Lab: [address] [address] [facility] COMPREHEN SIVE PNL BILIRUBIN.T OTAL [MASS/VOLUM E] IN SERUM OR PLASMA 1.0 mg/dL 0.2 - 1.2 06/27 Specimen Type: PLASMA Comment: Low-risk levels (desirable) <200 mg/dL Moderate-ri sk levels (borderline ) 200-239 mg/dL High-risk levels: >= 240 mg/dL Normal: <150 mg/dL -Borderline High: 1580-199 mg/dL -High: 200-499 mg/dL -Very High: >500 mg/dL eGFR was calculated using the CKD-EPI Creatinine (2020) equation. Optimal: <100 mg/dL -Near Optimal/Abo ve Optimal: 100-129 mg/dL -Borderline High: 130-159 mg/dL -High: 160-189 mg/dL -Very High: >=190 mg/dL Ordering Provider: TIARA ISAAC Report Released Date/Time: Jul 06, 2023 11:20 AM Reporting Lab: [address] [address] Performing Lab: [address] [address] [facility] COMPREHEN SIVE PNL PROTEIN [MASS/VOLUM E] IN SERUM OR PLASMA 6.9 g/dL 5.7 - 8.2 06/27 Specimen Type: PLASMA Comment: Low-risk levels (desirable) <200 mg/dL Moderate-ri sk levels (borderline ) 200-239 mg/dL High-risk levels: >= 240 mg/dL Normal: <150 mg/dL -Borderline High: 1580-199 mg/dL -High: 200-499 mg/dL -Very High: >500 mg/dL eGFR was calculated using the CKD-EPI Creatinine (2020) equation. Optimal: <100 mg/dL -Near Optimal/Abo ve Optimal: 100-129 mg/dL -Borderline High: 130-159 mg/dL -High: 160-189 mg/dL -Very High: >=190 mg/dL Ordering Provider: TIARA ISAAC Report Released Date/Time: Jul 06, 2023 11:20 AM Reporting Lab: [address] [address] Performing Lab: [address] [address] [facility] COMPREHEN SIVE PNL ALBUMIN [MASS/VOLUM E] IN SERUM OR PLASMA 4.3 g/dL 3.4 - 5.0 06/27 Specimen Type: PLASMA Comment: Low-risk levels (desirable) <200 mg/dL Moderate-ri sk levels (borderline ) 200-239 mg/dL High-risk levels: >= 240 mg/dL Normal: <150 mg/dL -Borderline High: 1580-199 mg/dL -High: 200-499 mg/dL -Very High: >500 mg/dL eGFR was calculated using the CKD-EPI Creatinine (2020) equation. Optimal: <100 mg/dL -Near Optimal/Abo ve Optimal: 100-129 mg/dL -Borderline High: 130-159 mg/dL -High: 160-189 mg/dL -Very High: >=190 mg/dL Ordering Provider: TIARA ISAAC Report Released Date/Time: Jul 06, 2023 11:20 AM Reporting Lab: [address] [address] Performing Lab: [address] [address] [facility] COMPREHEN SIVE PNL ALKALINE PHOSPHATASE [ENZYMATIC ACTIVITY/VO LUME] IN SERUM OR PLASMA 54 U/L 45 - 117 06/27 Specimen Type: PLASMA Comment: Low-risk levels (desirable) <200 mg/dL Moderate-ri sk levels (borderline ) 200-239 mg/dL High-risk levels: >= 240 mg/dL Normal: <150 mg/dL -Borderline High: 1580-199 mg/dL -High: 200-499 mg/dL -Very High: >500 mg/dL eGFR was calculated using the CKD-EPI Creatinine (2020) equation. Optimal: <100 mg/dL -Near Optimal/Abo ve Optimal: 100-129 mg/dL -Borderline High: 130-159 mg/dL -High: 160-189 mg/dL -Very High: >=190 mg/dL Ordering Provider: TIARA ISAAC Report Released Date/Time: Jul 06, 2023 11:20 AM Reporting Lab: [address] [address] Performing Lab: [address] [address] [facility] COMPREHEN SIVE PNL ALANINE AMINOTRANSF ERASE [ENZYMATIC ACTIVITY/VO LUME] IN SERUM OR PLASMA 26 U/L 10 - 65 06/27 Specimen Type: PLASMA Comment: Low-risk levels (desirable) <200 mg/dL Moderate-ri sk levels (borderline ) 200-239 mg/dL High-risk levels: >= 240 mg/dL Normal: <150 mg/dL -Borderline High: 1580-199 mg/dL -High: 200-499 mg/dL -Very High: >500 mg/dL eGFR was calculated using the CKD-EPI Creatinine (2020) equation. Optimal: <100 mg/dL -Near Optimal/Abo ve Optimal: 100-129 mg/dL -Borderline High: 130-159 mg/dL -High: 160-189 mg/dL -Very High: >=190 mg/dL Ordering Provider: TIARA ISAAC Report Released Date/Time: Jul 06, 2023 11:20 AM Reporting Lab: [address] [address] Performing Lab: [address] [address] [facility] COMPREHEN SIVE PNL ASPARTATE AMINOTRANSF ERASE [ENZYMATIC ACTIVITY/VO LUME] IN SERUM OR PLASMA 26 U/L 10 - 06/27 Specimen Type: PLASMA Comment: Low-risk levels (desirable) <200 mg/dL Moderate-ri sk levels (borderline ) 200-239 mg/dL High-risk levels: >= 240 mg/dL Normal: <150 mg/dL -Borderline High: 1580-199 mg/dL -High: 200-499 mg/dL -Very High: >500 mg/dL eGFR was calculated using the CKD-EPI Creatinine (2020) equation. Optimal: <100 mg/dL -Near Optimal/Abo ve Optimal: 100-129 mg/dL -Borderline High: 130-159 mg/dL -High: 160-189 mg/dL -Very High: >=190 mg/dL Ordering Provider: TIARA ISAAC Report Released Date/Time: Jul 06, 2023 11:20 AM Reporting Lab: [address] [address] Performing Lab: [address] [address] [facility] COMPREHEN SIVE PNL UREA NITROGEN [MASS/VOLUM E] IN SERUM OR PLASMA 10 mg/dL - 06/27 Specimen Type: PLASMA Comment: Low-risk levels (desirable) <200 mg/dL Moderate-ri sk levels (borderline ) 200-239 mg/dL High-risk levels: >= 240 mg/dL Normal: <150 mg/dL -Borderline High: 1580-199 mg/dL -High: 200-499 mg/dL -Very High: >500 mg/dL eGFR was calculated using the CKD-EPI Creatinine (2020) equation. Optimal: <100 mg/dL -Near Optimal/Abo ve Optimal: 100-129 mg/dL -Borderline High: 130-159 mg/dL -High: 160-189 mg/dL -Very High: >=190 mg/dL Ordering Provider: TIARA ISAAC Report Released Date/Time: Jul 06, 2023 11:20 AM Reporting Lab: [address] [address] Performing Lab: [address] [address] [facility] COMPREHEN SIVE PNL CALCIUM, TOTAL 8.8 mg/dL 8.7 - 10.4 06/27 Specimen Type: PLASMA Comment: Low-risk levels (desirable) <200 mg/dL Moderate-ri sk levels (borderline ) 200-239 mg/dL High-risk levels: >= 240 mg/dL Normal: <150 mg/dL -Borderline High: 1580-199 mg/dL -High: 200-499 mg/dL -Very High: >500 mg/dL eGFR was calculated using the CKD-EPI Creatinine (2020) equation. Optimal: <100 mg/dL -Near Optimal/Abo ve Optimal: 100-129 mg/dL -Borderline High: 130-159 mg/dL -High: 160-189 mg/dL -Very High: >=190 mg/dL Ordering Provider: TIARA ISAAC Report Released Date/Time: Jul 06, 2023 11:20 AM Reporting Lab: [address] [address] Performing Lab: [address] [address] [facility] COMPREHEN SIVE PNL CARBON DIOXIDE, TOTAL [MOLES/VOLU ME] IN SERUM OR PLASMA 25 mmol/L 21 - 32 06/27 Specimen Type: PLASMA Comment: Low-risk levels (desirable) <200 mg/dL Moderate-ri sk levels (borderline ) 200-239 mg/dL High-risk levels: >= 240 mg/dL Normal: <150 mg/dL -Borderline High: 1580-199 mg/dL -High: 200-499 mg/dL -Very High: >500 mg/dL eGFR was calculated using the CKD-EPI Creatinine (2020) equation. Optimal: <100 mg/dL -Near Optimal/Abo ve Optimal: 100-129 mg/dL -Borderline High: 130-159 mg/dL -High: 160-189 mg/dL -Very High: >=190 mg/dL Ordering Provider: TIARA ISAAC Report Released Date/Time: Jul 06, 2023 11:20 AM Reporting Lab: [address] [address] Performing Lab: [address] [address] [facility] COMPREHEN SIVE PNL CHLORIDE [MOLES/VOLU ME] IN SERUM OR PLASMA 110 mmol/L 98 - 109 06/27 H Specimen Type: PLASMA Comment: Low-risk levels (desirable) <200 mg/dL Moderate-ri sk levels (borderline ) 200-239 mg/dL High-risk levels: >= 240 mg/dL Normal: <150 mg/dL -Borderline High: 1580-199 mg/dL -High: 200-499 mg/dL -Very High: >500 mg/dL eGFR was calculated using the CKD-EPI Creatinine (2020) equation. Optimal: <100 mg/dL -Near Optimal/Abo ve Optimal: 100-129 mg/dL -Borderline High: 130-159 mg/dL -High: 160-189 mg/dL -Very High: >=190 mg/dL Ordering Provider: TIARA ISAAC Report Released Date/Time: Jul 06, 2023 11:20 AM Reporting Lab: [address] [address] Performing Lab: [address] [address] [facility] COMPREHEN SIVE PNL CREATININE [MASS/VOLUM E] IN URINE 0.93 mg/dL 0.67 - 1.17 06/27 Specimen Type: PLASMA Comment: Low-risk levels (desirable) <200 mg/dL Moderate-ri sk levels (borderline ) 200-239 mg/dL High-risk levels: >= 240 mg/dL Normal: <150 mg/dL -Borderline High: 1580-199 mg/dL -High: 200-499 mg/dL -Very High: >500 mg/dL eGFR was calculated using the CKD-EPI Creatinine (2020) equation. Optimal: <100 mg/dL -Near Optimal/Abo ve Optimal: 100-129 mg/dL -Borderline High: 130-159 mg/dL -High: 160-189 mg/dL -Very High: >=190 mg/dL Ordering Provider: TIARA ISAAC Report Released Date/Time: Jul 06, 2023 11:20 AM Reporting Lab: [address] [address] Performing Lab: [address] [address] [facility] VITAMIN D 25-HYDROX Y 25-HYDROXYV ITAMIN D3 [MASS/VOLUM E] IN SERUM OR PLASMA 68.80 ng/mL 30 - 100 06/27 Specimen Type: SERUM Comment: Deficiency <20, Insufficien cy 20-30, Sufficiency 30-100, Toxicity >100 ng/mL Ordering Provider: TIARA ISAAC Report Released Date/Time: Jul 06, 2023 11:20 AM Reporting Lab: [address] [address] Performing Lab: [address] [address] [facility] A1C % HEMOGLOBIN A1C/HEMOGLO BIN.TOTAL IN BLOOD 5.4 0.0 - 5.6 06/28 Specimen Type: BLOOD Comment: Normal: < or = 5.6% Pre-diabete s: 5.7-6.4% Diabetes Mellitus: > or = 6.5% Values obtained from A1C measurement s can vary. For typical A1C assays, a reported value of 7.0 could actually be between 6.72 and 7.28 if measured by a reference method. A reported value of 9.0 could actually be between 8.73 and 9.27. Ref: http://www. ngsp.org/[place] Pdata.asp Ordering Provider: NOREEN CLAIRE Report Released Date/Time: Jul 05, 2022 02:38 PM Reporting Lab: [address] [address] Performing Lab: [address] [address] [facility] THYROID CASCADE PANEL THYROTROPIN [UNITS/VOLU ME] IN SERUM OR PLASMA 2.826 u[IU]/ mL 0.550 - 4.780 06/28 Specimen Type: SERUM Comment: Deficiency <20, Insufficien cy 20-30, Sufficiency 30-100, Toxicity >100 ng/mL Ordering Provider: NOREEN CLAIRE Report Released Date/Time: Jul 05, 2022 02:38 PM Reporting Lab: [address] [address] Performing Lab: [address] [address] [address] [facility] LIPID PNL CHOLESTEROL IN HDL [MASS/VOLUM E] IN SERUM OR PLASMA 42.7 mg/dL 60 06/28 L Specimen Type: PLASMA Comment: Low-risk levels (desirable) <200 mg/dL Moderate-ri sk levels (borderline ) 200-239 mg/dL High-risk levels: >= 240 mg/dL Normal: <150 mg/dL -Borderline High: 1580-199 mg/dL -High: 200-499 mg/dL -Very High: >500 mg/dL eGFR was calculated using the CKD-EPI Creatinine (2020) equation. Optimal: <100 mg/dL -Near Optimal/Abo ve Optimal: 100-129 mg/dL -Borderline High: 130-159 mg/dL -High: 160-189 mg/dL -Very High: >=190 mg/dL Ordering Provider: NOREEN CLAIRE Report Released Date/Time: Jul 05, 2022 02:38 PM Reporting Lab: [address] [address] Performing Lab: [address] [address] [facility] LIPID PNL TRIGLYCERID E [MASS/VOLUM E] IN SERUM OR PLASMA 69 mg/dL 06/28 Specimen Type: PLASMA Comment: Low-risk levels (desirable) <200 mg/dL Moderate-ri sk levels (borderline ) 200-239 mg/dL High-risk levels: >= 240 mg/dL Normal: <150 mg/dL -Borderline High: 1580-199 mg/dL -High: 200-499 mg/dL -Very High: >500 mg/dL eGFR was calculated using the CKD-EPI Creatinine (2020) equation. Optimal: <100 mg/dL -Near Optimal/Abo ve Optimal: 100-129 mg/dL -Borderline High: 130-159 mg/dL -High: 160-189 mg/dL -Very High: >=190 mg/dL Ordering Provider: NOREEN CLAIRE Report Released Date/Time: Jul 05, 2022 02:38 PM Reporting Lab: [address] [address] Performing Lab: [address] [address] [facility] LIPID PNL CHOLESTEROL IN LDL [MASS/VOLUM E] IN SERUM OR PLASMA BY DIRECT ASSAY [facility] 06/28 Specimen Type: PLASMA Comment: Low-risk levels (desirable) <200 mg/dL Moderate-ri sk levels (borderline ) 200-239 mg/dL High-risk levels: >= 240 mg/dL Normal: <150 mg/dL -Borderline High: 1580-199 mg/dL -High: 200-499 mg/dL -Very High: >500 mg/dL eGFR was calculated using the CKD-EPI Creatinine (2020) equation. Optimal: <100 mg/dL -Near Optimal/Abo ve Optimal: 100-129 mg/dL -Borderline High: 130-159 mg/dL -High: 160-189 mg/dL -Very High: >=190 mg/dL Ordering Provider: NOREEN CLAIRE Report Released Date/Time: Jul 05, 2022 02:38 PM Reporting Lab: [address] [address] Performing Lab: [address] [address] [facility] LIPID PNL CHOLESTEROL [MASS/VOLUM E] IN SERUM OR PLASMA 156 mg/dL 06/28 Specimen Type: PLASMA Comment: Low-risk levels (desirable) <200 mg/dL Moderate-ri sk levels (borderline ) 200-239 mg/dL High-risk levels: >= 240 mg/dL Normal: <150 mg/dL -Borderline High: 1580-199 mg/dL -High: 200-499 mg/dL -Very High: >500 mg/dL eGFR was calculated using the CKD-EPI Creatinine (2020) equation. Optimal: <100 mg/dL -Near Optimal/Abo ve Optimal: 100-129 mg/dL -Borderline High: 130-159 mg/dL -High: 160-189 mg/dL -Very High: >=190 mg/dL Ordering Provider: NOREEN CLAIRE Report Released Date/Time: Jul 05, 2022 02:38 PM Reporting Lab: [address] [address] Performing Lab: [address] [address] [facility] LIPID PNL LDL (CALCULATED ) 99.5 mg/dL 06/28 H Specimen Type: PLASMA Comment: Low-risk levels (desirable) <200 mg/dL Moderate-ri sk levels (borderline ) 200-239 mg/dL High-risk levels: >= 240 mg/dL Normal: <150 mg/dL -Borderline High: 1580-199 mg/dL -High: 200-499 mg/dL -Very High: >500 mg/dL eGFR was calculated using the CKD-EPI Creatinine (2020) equation. Optimal: <100 mg/dL -Near Optimal/Abo ve Optimal: 100-129 mg/dL -Borderline High: 130-159 mg/dL -High: 160-189 mg/dL -Very High: >=190 mg/dL Ordering Provider: NOREEN CLAIRE Report Released Date/Time: Jul 05, 2022 02:38 PM Reporting Lab: [address] [address] Performing Lab: [address] [address] [facility] VITAMIN D 25-HYDROX Y 25-HYDROXYV ITAMIN D3 [MASS/VOLUM E] IN SERUM OR PLASMA 50.30 ng/mL 30 - 100 06/28 Specimen Type: SERUM Comment: Deficiency <20, Insufficien cy 20-30, Sufficiency 30-100, Toxicity >100 ng/mL Ordering Provider: NOREEN CLAIRE Report Released Date/Time: Jul 05, 2022 02:38 PM Reporting Lab: [address] [address] Performing Lab: [address] [address] [facility] Vital Signs Combined list of inpatient and outpatient Vital Signs from Department of Defense and Veterans Affairs, ranging from 12 months to all on record, depending upon the facility. Vital Sign Value Date Comments Source SYSTOLIC BLOOD PRESSURE 145 07/09/2024 14:12:36 [facility] DIASTOLIC BLOOD PRESSURE 92 07/09/2024 14:12:36 [facility] PULSE OXIMETRY 97 07/09/2024 14:12:36 [facility] WEIGHT 235.4 07/09/2024 14:12:36 [facility] BMI 29kg/m2 07/09/2024 14:12:36 [facility] PAIN 0 07/09/2024 14:12:36 [facility] TEMPERATURE 97.9 07/09/2024 14:12:36 [facility] PULSE 53 07/09/2024 14:12:36 [facility] RESPIRATION 20 07/09/2024 14:12:36 [facility] Encounters Combined list of: 1) Encounters from Department of Veterans Affairs facilities going back up to thelas 18 months. 2) Encounters from the Department of [facility] facilities going back up to 280 months. 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
WHITE,GORD ON 07/05 [facility] HC PRO PHONE CALL 11-20 MIN [id number] Diagnos is: ICD-10- CM Z71.89 Other specifi ed residential treatment counselor ing<br/ > BETTE,WEND Y A 08/17 [facility] Outpatient Encounter [id number] 08/20 [facility] Outpatient Encounter [id number] 08/24 [facility] Outpatient Encounter [id number] 08/29 [facility] OFFICE O/P EST MOD 30-39 MIN [id number] Diagnos is: ICD-10- CM M54.41 Lumbago with sciatic a, right side
WHITE,GORD ON 08/29 [facility] HC PRO PHONE CALL 11-20 MIN [id number] Diagnos is: ICD-10- CM Z71.89 Other specifi ed residential treatment counselor ing<br/ > MIKAELA JACKSON HER 08/29 [facility] Outpatient Encounter [id number] 08/30 [facility] HC PRO PHONE CALL 11-20 MIN [id number] Diagnos is: ICD-10- CM Z71.89 Other specifi ed residential treatment counselor ing<br/ > RAECELIO OLD W 08/30 [facility] Outpatient Encounter [id number] 08/31 [facility] Outpatient Encounter [id number] 08/31 [facility] HC PRO PHONE CALL 5-10 MIN [id number] Diagnos is: ICD-10- CM Z71.89 Other specifi ed residential treatment counselor ing<br/ > Kimberley RAMSAY E 09/01 [facility] Outpatient Encounter [id number] SAW HERNANDEZ 09/05 [facility] Outpatient Encounter [id number] 09/05 [facility] Outpatient Encounter [id number] 09/06 [facility] Outpatient Encounter [id number] 09/07 [facility] Outpatient Encounter [id number] 09/13 [facility] Outpatient Encounter [id number] 09/26 [facility] Outpatient Encounter [id number] [id number] BUTCHCELIO PRASAD W 09/27 [facility] Outpatient Encounter [id number] 10/05 [facility] Outpatient Encounter [id number] CELIO RAE W 11/29 [facility] Outpatient Encounter [id number] 11/30 [facility] OFFICE O/P EST LOW 20 MIN [id number] Diagnos is: ICD-10- CM M54.51 Vertebr ogenic low back pain
WHITE,GORD ON 12/05 [facility] HC PRO PHONE CALL 21-30 MIN [id number] Diagnos is: ICD-10- CM R03.0 Elevate d blood-p ressure reading , w/o diagnos is of htn<br/ > NANCY FRANKLIN M 01/03 [facility] Outpatient Encounter [id number] 01/03 [facility] Outpatient Encounter [id number] 02/21 [facility] HC PRO PHONE CALL 11-20 MIN [id number] Diagnos is: ICD-10- CM Z71.89 Other specifi ed residential treatment counselor ing<br/ > AYAAN WHITE M 03/01 [facility] Outpatient Encounter [id number] 03/01 [facility] Outpatient Encounter [id number] OPAL WOODWARD 05/06 [facility] Outpatient Encounter [id number] OPAL WOODWARD 05/14 [facility] Outpatient Encounter [id number] 07/09 [facility] Outpatient Encounter [id number] Diagnos is: ICD-10- CM Z00.01 Encount er for general adult medical exam w abnorma l finding s
ASUNCION,TRACE L L 07/09 [facility] Outpatient Encounter [id number] 07/09 [facility] Outpatient Encounter [id number] [id number] 08/05 [facility] Outpatient Encounter [id number] [id number] 09/05 [facility] Social History Combined list of available smoking, tobacco, and other social history from Department of Defense and Veterans Affairs facilities. Social History Type Response Date Comment Source Tobacco smoking status [facility] VA-TOBACCO NEVER USED 07/09/2024 [facility] History of tobacco use VA-TOBACCO NEVER USED 07/05/2023 [facility] History of tobacco use VA-TOBACCO NEVER USED 07/05/2022 [facility] History of tobacco use VA-TOBACCO NEVER USED 06/01/2021 [facility] History [facility] tobacco use [place]-TOBACCO NEVER USED 12/18/2019 [facility] History of tobacco use VA-TOBACCO NEVER USED 11/08/2018 [facility] History of tobacco use QUIT TOBACCO >12 MO and <7 YRS AGO 05/29/2018 [facility] History of tobacco use QUIT TOBACCO >12 MO and <7 YRS AGO 08/08/2017 [facility] History of tobacco use QUIT TOBACCO >12 MO and <7 YRS AGO 07/21/2016 [facility] History of tobacco use PREVIOUS SMOKER 04/05/2016 Quit smoking cigars 1.5 years ago [facility] History of tobacco use CURRENT TOBACCO USER 08/20/2015 [facility] Advance Directives List of completed, amended, or rescinded Advance Directives on record at Department of Veterans Affairs facilities. An actual copy of the Directive is not included. Date Advance Directive Provider Source 08/28/2015 [facility] DIRECTIVE DISCUSSION [facility]
--- OUTSIDE RECORDS SUMMARY | 2024-12-22 20:42 | XMS_ITS | Encounter Summary ---
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 Date/Time Encounter Type Encounter Description Reason Provider Source Jul 09, 2024 02:30 PM Outpatient Encounter PRIMARY CARE/MEDICINE ICD-10-CM Z00.01 Encounter for general adult medical exam w abnormal findings JORGE ROLAND [facility] Encounter Template Text not used by [place] Assessments - Encounter Diagnoses This section includes the primary and secondary diagnoses documented for the Encounter. Date/Time Primary/Secondary Diagnosis Diagnosis Name Provider Source Jul 09, 2024 03:05 PM PRIMARY Encounter for general adult medical exam w abnormal findings JORGE ROLAND [facility] Jul 09, 2024 03:05 PM SECONDARY Chronic lymphocytic leukemia of B-cell type in remission JORGE ROLAND [facility] Jul 09, 2024 03:05 PM SECONDARY Elevated blood-pressure reading, w/o diagnosis of htn JORGE ROLAND [facility] Jul 09, 2024 03:05 PM SECONDARY Vertebrogenic low back pain JORGE ROLAND [facility] Plan of Treatment: Future Appointments (+ 6 months) and Future Tests (+/- 45 days) The Plan of Treatment section includes future care activities for the patient from all [place] [facility]. This section includes future appointments and future orders which are active, pending or scheduled. Future Appointments This section includes appointments that were scheduled to occur 6 months from the date of the Encounter, up to a maximum of 20 appointments. The data comes from all [place] treatment facilities. Appointment Date/Time Appointment Type Appointme nt Facility Name Sep 05, 2024 12:00 PM AMBULATORY - NONE [facility] Active, Pending, and Scheduled Orders This section includes a listing of several types of active, pending, and scheduled orders, including clinic medications orders, diagnostic test orders, procedure orders and consult orders; where the start date of the order is 45 days before the date of the Encounter or 45 days after the date of theEncounter. The data comes from all [place] treatment facilities. Test Date/Time Test Type Test Details Facility Name Jul 04, 2024 12:00 AM Laboratory - Chemi stry Order CBC W/DIFF BLOOD SP ONCE [facility] Lab Results: +/- 30 days of the encounter This section includes the Chemistry and Hematology Lab Results on record with [place] for the patient. Radiology Reports and Pathology Reports are provided separately, in subsequent sections. Lab Results This section contains the Chemistry/Hematology Results that were resulted 30 days before or 30 daysafter the date of the Encounter. Date/Time Source Result Type Result - Unit Interpretation Reference Range Comment Jun 27, 2024 10:05 AM [facility] A1C % Specimen Type: BLOOD Comment: Normal: [...] Jul 06, 2023 11:20 AM Reporting Lab: [address] [id number] Performing Lab: [address] [address] A1C % 5.6 0.0-5.6 Jun 27, 2024 10:05 AM [facility] LIPID PNL Specimen Type: PLASMA Comment: Low-risk [...] Jul 06, 2023 11:20 AM Reporting Lab: [address] [address] Performing Lab: [address] [address] DIR. HDL 45 mg/dL L >=60 TRIGLYCERIDES 59 mg/dL See Comment DIR LDL canc CHOL 155 mg/dL See Comment LDL (CALCULATED) 98 mg/dL See Comment Jun 27, 2024 10:05 AM [facility] URINE ALBUMIN/CREAT (RAND URINE) Specimen Type: URINE Comment: MALB/CREAT ratio cannot be calculated-azalea lyte outside linearity. Ordering Provider: SHYANNE ISAAC Report Released Date/Time: Jul 06, 2023 11:20 AM Reporting Lab: [address] [address] Performing Lab: [address] [address] URINE ALBUMIN(RAND URINE) <0.3 mg/dL <2.0 CREAT(RNDM URINE) 28.90 mg/dL L 40-278 CREAT RATIO (RNDM URINE) comment mg/g <30 Jun 27, 2024 10:05 AM [facility] THYROID CASCADE PANEL Specimen Type: SERUM Comment: Deficiency <20, Insufficiency 20-30, Sufficiency 30-100, Toxicity >100 ng/mL Ordering Provider: SHYANNE ISAAC Report Released Date/Time: Jul 06, 2023 11:20 AM Reporting Lab: [address] [address] Performing Lab: [address] [address] TSH3 ULTRA EIA 2.752 u[IU]/mL 0.550-4.78 0 Jun 27, 2024 10:05 AM [facility] COMPREHENSIVE PNL Specimen Type: PLASMA Comment: Low-risk [...] Jul 06, 2023 11:20 AM Reporting Lab: [address] [address] Performing Lab: [address] [address] ANION GAP 9 mmol/L 5-15 EGFR 87 [...] mg/dL 0.67-1.17 Jun 27, 2024 10:05 AM [facility] VITAMIN D 25-HYDROXY Specimen Type: SERUM Comment: Deficiency <20, Insufficiency 20-30, Sufficiency 30-100, Toxicity >100 ng/mL Ordering Provider: SHYANNE ISAAC Report Released Date/Time: Jul 06, 2023 11:20 AM Reporting Lab: [place] [id number] [facility] [address] Performing Lab: [facility] [address] [facility] [address] VITAMIN D 25-HYDROXY 68.80 ng/mL 30-100 Vital Signs: All taken on the encounter date This section contains inpatient and outpatient Vital Signs collected on the date of the Encounter. Date/Time Temperature Pulse Blood Pressure Respiratory Rate SP02 Pain Height Weight Body Mass Index Source Jul 09, 2024 02:47 PM 172/78 [facility] Jul 09, 2024 02:12 PM 97.9 53 145/92 20 97 0 235.4 29 [facility] Social History: Smoking Status (Most current) and Tobacco Use (All prior to encounter date) This section includes the most current, and the historical, smoking and tobacco- related health factors from the [place] facility where the Encounter took place. Current Smoking Status This section includes the most current smoking, or tobacco-related health factor, from the [place] facility where the Encounter took place. Date/Time Current Smoking Status Comment Ana Paula ity Jul 09, 2024 02:30 PM VA-TOBACCO NEVER USED [facility] Tobacco Use History This section includes a history of the smoking, or tobacco-related health factors, that were collected on or before the date of the Encounter. The data comes from the [place] facility where the Encounter took place. Date/Time Smoking Status/Tobacco Use Comment F acility Jul 05, 2023 01:30 PM VA-TOBACCO NEVER USED [facility] Jul 05, 2022 02:00 PM VA-TOBACCO NEVER USED [facility] Jun 01, 2021 10:30 AM VA-TOBACCO NEVER USED [facility] Dec 18, 2019 10:30 AM VA-TOBACCO NEVER USED [facility] Nov 08, 2018 02:55 PM VA-TOBACCO NEVER USED [facility] May 29, 2018 01:51 PM QUIT TOBACCO >12 MO & <7 YRS AGO [facility] Aug 08, 2017 02:19 PM QUIT TOBACCO >12 MO & <7 YRS AGO [facility] Jul 21, 2016 10:39 AM QUIT TOBACCO >12 MO & <7 YRS AGO [facility] Advance Directives: All historical and current Section Date Range: From patient's date of to the date document was created. This section includes ALL of a patient's completed or amended VA Advance and Rescinded Directives. The entries below indicate that a directive exists for the patient, but an actual copy is not included with this document. The data comes from all [place] facilities. Date Advance Directives Provider Source Aug 28, 2015 ADVANCE DIRECTIVE DISCUSSION [facility] Encounter Notes: All associated encounter notes This section contains the clinical notes associated to the Encounter. 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 Suicide Screen: C-SSRS Screening [place] Suicide Severity Rating Scale (C-SSRS) screener 1. Over the past month, have you wished you were or wished you could go to sleep and not wake up? No 2. Over the past month, have you had any actual thoughts of killing yourself? No 3. Over the past month, have you been thinking about how you might do this? Response not required due to responses to other questions. 4. Over the past month, have you had these thoughts and had some intention of acting on them? Response not required due to responses to other questions. 5. Over the past month, have you started to work out or worked out the details of how to kill yourself? Response not required due to responses to other questions. 6. If yes, at any time in the past month did you intend to carry out this plan? Response not required due to responses to other questions. 7. In your lifetime, have you ever done anything, started to do anything, or prepared to do anything to end your life (for example, collected pills, obtained a gun, gave away valuables, went to the roof but didn't jump)? No 8. If YES, was this within the past 3 months? Response not required due to responses to other questions. Influenza Immunization: No influenza vaccination was received during the recent influenza season. Alcohol Use Screen (AUDIT-C): Alcohol Screen: SCREEN FOR ALCOHOL (AUDIT-C) An alcohol screening test (AUDIT-C) was negative (score=1). 1. How often did you have a drink containing alcohol in the past year? Consider a drink to be a 12 ounce can or bottle of regular beer, 8 ounces of malt liquor, a 5 ounce glass of table wine, or a 1.5 ounce shot of liquor (like scotch, gin, or vodka). Monthly or less 2. How many drinks containing alcohol did you have on a typical day when you were drinking in the past year? One or two drinks 3. How often did you have six or more drinks on one occasion in the past year? Never Sexual Orientation: The patient thinks of their sexual orientation as: Straight or Heterosexual Prefer not to answer RHS Screen: RHS Screen Session Format: Face to Face Environmental Check Upon inquiry, the individual reports that the environment is safe to proceed. Informed Consent to Screen and Document The individual does NOT consent to proceed with screening. Depression Screening: Perform PHQ-2 A PHQ-2 screen was performed. The score was 0 which is a negative screen for depression. Over the past two weeks, how often have you been bothered by the following problems? 1. Little interest or pleasure in doing things Not at all 2. Feeling down, depressed, or hopeless Not at all Homelessness/Food Insecurity Screen: In the past 2 months, have you been living in stable housing that you own, rent, or stay in as part of a household? Yes - Living in stable housing. Are you worried or concerned that in the next 2 months you may NOT have stable housing that you own, rent, or stay in as part of a household? No - Not worried about housing near future The reports the following: Within the past 12 months, you worried whether your food would run out before you got money to buy more. Never true Within the past 12 months, the food you bought just didn't last and you didn't have money to get more. 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 Type of exercise, duration and frequency/week. Comment: 7 days week stationary bike 30 min, sauna 25 min, 100 push ups daily, strengthing with weights Did patient report New Balance Problem? [ NO ] Did patient report New Transfer Problem? [ NO ] Did patient report New Ambulating Problem? [ NO ] Has the patient fallen within the past 12 months? NO. Consult Orders placed: No Consult orders needed. ROXIE-PT AT RISK INCAPACITATED SCREEN: 1) Does the patient meet any of the criteria for being considered incapacitated? 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 [facility] reports no use of a wheelchair for mobility at least 75% of the time. Tobacco Use Screening: The patient has never used tobacco. Avg Risk Colorectal Cancer Screen: AVERAGE RISK colorectal cancer screening is due based on information available to this clinical reminder Patient declined screening/surveillance. Patient educated on the benefits of colorectal cancer screening/surveillance and the risk if screening/surveillance is not completed. Level of Understanding: Good Herpes Zoster (Shingles) Vaccine: The patient declines to receive the recommended dose of zoster (shingles) vaccine. Immunization: ZOSTER RECOMBINANT Refusal Reason: PATIENT DECISION Patient refuses all immunization(s) in the ZOSTER group Date Documented: 07/09/24 14:44 Td / Tdap Immunization: The patient declines to receive the recommended dose of Td/Tdap vaccine. Immunization: TD(ADULT) UNSPECIFIED FORMULATION Refusal Reason: PATIENT DECISION Patient refuses all immunization(s) in the Td group Date Documented: 07/09/24 14:45 COVID-19 Immunization: Refused Moderna Monovalent COVID-19 vaccine Immunization: COVID-19 (MODERNA), MRNA, LNP-S, PF, 50 MCG/0.5 ML (AGES 12+ YEARS) Refusal Reason: PATIENT DECISION Patient refuses all immunization(s) in the COVID-19 group Date Documented: 07/09/24 14:45 Refused Pfizer Monovalent COVID-19 vaccine Immunization: COVID-19 (PFIZER), MRNA, LNP-S, PF, JESSIE-SUCROSE, 30 MCG/0.3 ML (AGES 12+ YEARS) Refusal Reason: PATIENT DECISION Patient refuses all immunization(s) in the COVID-19 group Date Documented: 07/09/24 14:45 Refused Novavax COVID-19 vaccine Immunization: COVID-19 (NOVAVAX), SUBUNIT, RS-NANOPARTICLE, ADJUVANTED, PF, 5 MCG/0.5 ML (AGES 12+ YEARS) Refusal Reason: PATIENT DECISION Patient refuses all immunization(s) in the COVID-19 group Date Documented: 07/09/24 14:46 Pneumococcal Conjugate Vaccine (PCV15/PCV20): Refuses PCV vaccine Immunization: PNEUMOCOCCAL CONJUGATE, UNSPECIFIED FORMULATION Refusal Reason: PATIENT DECISION Patient refuses all immunization(s) in the PneumoPCV group Date Documented: 07/09/24 14:46 Stress: In the last 6 months, identified the following causes of stress or worry: restoration as a public safety police ROXIE-BLOOD PRESSURE >140/90: BP: 145/92 (07/09/2024 14:12) Did you take your Blood Pressure Medication today? Patient does not take Blood Pressure Medication/s. Have you consumed any caffeine within the last 30 minutes? NO Have you used any nicotine and/or nicotine products within the last 30 minutes? NO Blood Pressure rechecked: 172/78 /es/ JENS HERNANDEZ LPN Signed: 07/09/2024 14:48 JENS HERNANDEZ [facility] Jul 09, 2024 02:25 PM PRIMARY CARE NOTE: LOCAL TITLE: [facility] STANDARD TITLE: PRIMARY CARE NOTE DATE OF NOTE: JUL 09, 2024@14:25 ENTRY DATE: JUL 09, 2024@14:25:21 AUTHOR: JORGE ROLAND EXP COSIGNER: URGENCY: STATUS: COMPLETED HPI: 73 MALE is here for annual visit. He is managed by Civilian PCP: Dr. Howard. Also has specialists: Orthopedic: Dr. Dusty Bocanegra Quarry Supervisor: Dr. Anastacio Gomez Podiatry Hx of leukemia: In remission. Monitored by hematology. He feels well overall. Denies any symptoms. Weight is stable. No night sweats. Chronic back pain: Following with ortho. Hx of DDD and lumbar radiculopathy. He completed PT in the last year. He was taking gabapentin, naproxen, and flexeril, but pain is better and no longer needing. He is exercising with a stationary bike 30 minutes daily and some light weights, bodyweight exercise. He has elevated BP today. He has checked his BP at home and reports usually normal, with systolic 120, 130s. No chest pain, sob, edema, FLYNN. Following a lower salt diet. == ROS: GENERAL: Patient denies fever, chills, weight loss CARDIOVASCULAR: Patient denies chest pain, palpitations, edema PULMONARY: Patient denies shortness of breath or cough GASTROINTESTINAL: Patient denies nausea, vomiting, or abdominal pain GENITOURINARY: Patient denies dysuria or urinary frequency MUSCULOSKELETAL: Patient denies myalgias or arthralgias SKIN: Patient denies rashes, pruritus, or wounds NEUROLOGY: Patient denies headache, dizziness, syncope, numbness/tingling/weakness of extremities PSYCH: Patient denies recent changes in mood or sleep issues == Social Hx: Currently lives with Tobacco: Denies Etoh: Denies MJ/Drug Use: Denies 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 CLBP - chronic low back pain 2. Insomnia 3. Tinea 4. History of chronic lymphocytic leukemia 5. Elevated blood-pressure reading without diagnosis of hypertension 6. Polyp of colon == ALLERGIES: INFLUENZA MEDS: Active Outpatient Medications (including Supplies): Active Outpatient Medications Status 1) CYCLOBENZAPRINE HCL 10MG TAB TAKE ONE-HALF TABLET BY ACTIVE MOUTH TWO TIMES A DAY NEEDED FOR MUSCLE SPASM 2) GABAPENTIN 800MG TAB TAKE ONE TABLET BY MOUTH EVERY 8 ACTIVE HOURS NEEDED 3) LIDOCAINE 5% PATCH USE 1 PATCH TOPICALLY TO DRY, ACTIVE HAIRLESS AREA EVERY DAY NEEDED FOR PAIN PRESS PATCH ONTO THE SKIN FOR 10-15 SECONDS TO HEAT ACTIVATE THE ADHESIVE. REMOVE PATCH(ES) AFTER 12 HOURS AND LEAVE OFF FOR 12 HOURS. 4) NAPROXEN 500MG TAB TAKE ONE TABLET BY MOUTH TWO TIMES ACTIVE A DAY NEEDED FOR PAIN AND INFLAMMATION WITH FOOD IF POSSIBLE Active Non-VA Medications Status 1) Non-VA KETOCONAZOLE 2% CREAM THIN FILM TOPICALLY ACTIVE 2) Non-VA RITUXIMAB INJ,SOLN 13.4 ML UNDER THE SKIN ACTIVE EVERY 30 DAYS 6 Total Medications == VITAL SIGNS: Temperature: 97.9 F [36.6 C] (07/09/2024 14:12) Pulse: 53 (07/09/2024 14:12) Respirations: 20 (07/09/2024 14:12) BP: 172/78 (07/09/2024 14:47) Weight: 235.4 lb [106.78 kg] (07/09/2024 14:12) Height: 75 in [190.5 cm] (07/21/2016 10:38) BMI: BMI: - NO HEIGHTS FOUND == EXAM: Gen: NAD, afebrile, well-nourished and groomed, not obese or too thin HEENT: Non icteric sclera, EOMI, TMs normal bilat, MMM, oropharynx clear Neck: Supple, no adenopathy. Thyroid without masses. CV: RRR S1/2, No M/R/G Pulm: CTAB, No wheezing or crackles, Normal inspiratory effort on RA Abd: S/NT/ND, +BS x 4 quadrants. No masses, hepatolmegaly, splenomegaly. Extremities: No C/C/E. Pedal pulses intact bilat. Steady gait. Neuro: AAO x3, speech clear, moves all extremities, no focal deficits. Psych: good mood and affect, no suicidal or homicidal ideation, no immediate mental health needs == Assessment/Plan: 1. Annual visit: Continue routine care 2. Leukemia: In remission. Continue with hematology. 3. Chronic back pain: Stable. Continue with daily exercise. 4. Elevated blood pressure: He has a monitor at home and will check. Discussed goal and to let clinic know if elevated readings. == LABS 06/27/24 reviewed and copy given to patient. Repeat labs ordered for 1 year == Follow up yearly == I spent 33 minutes amount of time the day of this clinic visit preparing to see the patient, obtaining and/or reviewing separately obtained history, performing a medically appropriate examination and/or evaluation counseling the patient/family/caregiver, ordering medications, tests, or procedures, referring to and communicating with other health primary care nurse practitioner, documenting clinical information in the electronic or other health record, independently interpreting results, communicating results to the patient/family/caregiver, and care coordination. == Health Maintenance: * colonoscopy - Aug 2020, repeat 5 yrs * Yearly eye exam - advised pt to schedule an appt == PC-HIV Test/Screening: Patient has been offered HIV testing and has declined. I have explained that HIV testing is recommended for all adults, even if all risk factors are absent. /dawn/ JORGE ROLAND Physician Bat Carrier Signed: 07/09/2024 15:05 JORGE ROLAND [facility]
--- OUTSIDE RECORDS SUMMARY | 2024-12-22 20:42 | XMS_ITS | Clinical Summary ---
Author Organization [facility] Address [address], [facility] [address] [place] [address] Phone Care Team Providers Care Industrial Services Worker Name Role Phone Andre Mcadams MD Primary Care Provid er Allergies No known active allergies Medications No known medications Active Problems Patient Care Coordination No te Formatting of this note migh t be different from the original. ~~ OF April 15, 2019 PATIENT DOES NOT QUALIFY FOR [facility]~~[place] covering [place] of [place]~~ Problem Noted Date Diagnosed Date Chronic low back pain 09/05/2024 Insomnia 09/05/2024 Lumbago with sciatica, right side 09/05/2024 Chronic lymphocytic leukemia of B-cell type in r emission 05/02/2022 Polyp of colon 05/02/2022 Overview (05/02/2022): Jul 21, 2016 Entered By: DANIEL BURGOS Comment: last c-scope 2015 w/ f/up in 5 yrs Other specified counseling 05/02/2022 Finding of above normal blood pressure 2 Elevated blood-pressure read ing without diagnosis of hypertension 05/02/2022 Onychomycosis of toenail 07/24/2020 Current non-smoker 07/24/2020 Acute diverticulitis 03/14/2020 Tinea 10/27/2019 Overview (05/02/2022): Nov 17, 2019 Entered By: CECILE GARZA Comment: presents with id reaction as well Lymphocytosis 11/07/2016 CLL (chronic lymphocytic leukemia) 11/07/2016 History of chronic lymphocytic leukemia 11/27/19 16 Resolved Problems Problem Noted Date Diagnosed Date Resolved Date Neutropenic fever 03/13/2020 03/16/2020 Immunizations Immunization Administration Dates Next Due Influenza, Trivalent, Adjuvanted, PF 10/15/2019 TDAP Vaccine 11/27/2012,11/27/2009 Tetanus Toxoid, Unspecified Formulation 08/27/20 12 Social History Tobacco Use Types Packs/Day Years Used Date Smoking Tobacco: Never Smokeless Tobacco: Never Tobacco Cessation:Counseling Given: Not Answered Alcohol Use Standard Drinks/Week Comments Never 0 (1 standard drink = 0.6 oz pur e alcohol) AUDIT-C Answer Date Recorded Q1: How often do you have a drink containing alc ohol? 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 Gender Identity Not on file Sexual Orientation Not on file Last Filed Vital Signs Vital Sign Reading Time Taken Comments Blood Pressure 158/80 09/05/2024 12:21 PM CDT Pulse 67 09/05/2024 12:21 PM CDT Temperature 36.7 ??C (98 ??F) 09/05/2024 12: 21 PM CDT Respiratory Rate 16 09/05/2024 12:2 1 PM CDT Oxygen Saturation 97% 09/05/2024 12: 21 PM CDT Inhaled Oxygen Concentration - - Weight 106.9 kg (235 lb 11.2 oz) 2023 12:21 PM CDT Height 193 cm (6' 4 ) 09/05/2024 12:21 PM CDT Body Mass Index 28.69 09/05/2024 12:21 PM CDT Plan of Treatment Upcoming Encounters Date Type Department Care Team (Late st Contact Info) Description 09/04/2025 11:30 AM CDT Office Visit [facility] [address] [place] [id number] Anastacio Gomez Jr., MD [address] [id number] Health Maintenance Due Date Last Done Comments SARS-COV-2 Immunization (#1) 1956 Pneumococcal Immunization (5 0+ years) (1 of 2 - PCV) 1970 Zoster Immunization (1 of 2) 1970 Colonoscopy 1996 Colorectal Cancer Screening 1996 Cologuard 2001 Immunochemical Fecal Occult Blood 2001 Respiratory Syncytial Virus (RSV) Immunization (Adult) (1 - Risk 60-74 years 1-dose series) 2011 Td Immunization Every 10 Yea rs (Adults With 1 Tdap) 11/27/2022 11/27/2012, 11/27/2009 Influenza Immunization (#1) 2024 10/15/2019 DTaP/Tdap/Td Immunization Discontinued 2012, 11/27/2009 Hepatitis C Virus (HCV) Screening Completed 04/09/2019 Hepatitis B Immunization Aged Out No longer eligible based on patient's age to complete this topic Meningococcal Immunization (ACWY) Aged Out No longer eligible based on patient's age to complete this topic Rotavirus Immunization Aged Out No lo nger eligible based on patient's age to complete this topic Procedures Procedure Name Priority Date/Time Associated Diagnosis Comments HEPATITIS C ANTIBODY Routine 04/09/2019 8:18 AM CDT CLL (chronic lymphocytic leukemia) (HCC) Lymphadenopathy from Last 3 Months or Most Recently Relevant to Health Maintenance Results * HEPATITIS C ANTIBODY (04/09/2019 8:18 AM CDT) HCV AB 0.1 0.0 - 0.9 s/co ratio [facility] COMMENT: Comment [facility] Comment: Non reactive HCV antibody screen is consistent with no HCV infection, unless recent infection is suspected or other evidence exists to indicate HCV infection. Blood specimen (specimen) 04/09/2019 8:18 AM CDT Narrative [facility] - 04/10/2019 8:14 AM CDT Testing performed at: [] [facility], [address] [place] [address], [place], [address], , Casing Finisher And Stuffer: Vasquez Collins, PhD us Anastacio Gomez Jr., MD CHEMISTRY ORDERABLES Final Result [facility] from Last 3 Months or Most Recently Relevant to Health Maintenance Insurance MEDICARE [facility] CHOICE [facility] - [employer] Advance Directives * Full Code (Latest Code Status on File) Date Activated Date Inactivated Comments 03/13/2020 11:36 PM 03/16/2020 4:24 PM CPR-Full Tr eatment: FULL ARREST: Attempt Resuscitation/CPR wit intubation and mechanical ventilation. PRE-ARREST: Use entire range of life support measures to stabilize the patient. Care Teams Industrial Services Worker Relationship Specialty Start Date End Date Andre Mcadams MD [address] [place] [id number] PCP - General Internal Medicine 11/07/16
--- OUTSIDE RECORDS SUMMARY | 2024-12-22 20:42 | XMS_ITS | Clinical Summary ---
Author Organization [facility] Address [address] [place] [address]. [place], [place] [id number] [place] [id number] Care Team Providers Care Social Sciences Chair Name Role Phone Jennifer CASTAÑEDA MD, Adis Bridges Primary Care Provider Allergies No known active allergies Medications No known medications Active Problems No known active problems Social History Tobacco Use Types Packs/Day Years Used Date Smoking Tobacco: Never Smokeless Tobacco: Never Tobacco Cessation:Counseling Given: Not Answered Alcohol Use Standard Drinks/Week Comments Yes 0 (1 standard drink = 0.6 oz pur e alcohol) very rare Sex and Gender Information Value Date Recorded Sex Assigned at Not on file 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 Gender Identity Not on file Sexual Orientation Not on file Last Filed Vital Signs Vital Sign Reading Time Taken Comments Blood Pressure 164/65 04/12/2023 1:45 PM CDT Pulse 46 04/12/2023 1:45 PM CDT Temperature 36.1 ??C (96.9 ??F) 04/12/2023 1:45 PM CD T Respiratory Rate 18 04/12/2023 1:45 PM CDT Oxygen Saturation 100% 04/12/2023 1:45 PM CDT Inhaled Oxygen Concentration - - Weight 105.7 kg (233 lb) 04/06/2023 11:19 AM CDT Height 193 cm (6' 4 ) 04/06/2023 11:19 AM CDT Body Mass Index 28.36 04/06/2023 11:19 AM CDT Plan of Treatment Health Maintenance Due Date Last Done Comments Colorectal Cancer Screening Colonoscopy (10 Years) 1951 Hepatitis C 1969 Zoster Vaccines (1 of 2) 2001 Pneumococcal Vaccine: 65+ Years (1 of 1 - PCV) 2016 DTaP, Tdap and Td Vaccines ( 4 - Td or Tdap) 11/27/2022 11/27/2012, 08/27/2012, 11/27/2009 COVID-19 Vaccine (1 - 2023-2 5 season) 2024 Influenza Adult (#1) 2024 10/15/2019 RSV Immunization or 60+ Years (1 - 1-dose 75+ series) 2026 Meningococcal Vaccine Aged Out No elvie sanjiv eligible based on patient's age to complete this topic RSV Immunizations Under 20 Months Aged Out No longer eligible b ased on patient's age to complete this topic Medical Devices Implanted Type Area Care Director Device Identifier Shelf Expiration Date Model / Serial / Lot Iol Tecnis Toric [id number] - [id number] Implanted:Qty: 1 on 03/15/2023 by Tatiana Delaney MD at [facility] Lens Left: Eye [employer] [id number] 02/17/2027 [id number] / [id number] / Tecnis 1-Piece Preloaded Iol Implanted:Qty: 1 on 04/12/2023 by Tatiana Delaney MD at [facility] Right: Eye [id number] / [id number] / [place] [address] [facility] OFFICE OF [facility] Advance Directives * Full Code (Latest Code Status on File) Date Activated Date Inactivated Comments 03/15/2023 8:41 AM 03/15/2023 11:56 AM Care Teams Social Sciences Chair Relationship Specialty Start Date End Date Adis Rodriguez II, MD [address] [place] [id number] PCP - General [facility] HEALTH CARE PROVIDER 03/15/23
--- OUTSIDE RECORDS SUMMARY | 2024-12-22 20:42 | XMS_ITS ---
Author Organization [facility] Address [address], [facility] [address] [place] [address] Phone Care Team Providers Care Social Service Assistant Name Role Phone Andre Mcadams MD Primary Care Provid er Active Problems Patient Care Coordination No te [...] History of chronic lymphocytic leukemia 11/27/19 16 Current Treatment and Therapy Plans No current plan information found. Past Treatment and Therapy Plans ONCOLOGY TREATMENT Plan Name Start Date Discontinue Date Treatment Medications Discontinue Reason Plan Provider Cycles CLL - RITUXIMAB - CCS 04/09/2019 11/30/2020 riTUXimab (RITUXAN) infusionrituxi mab-hyaluronid ase human (RITUXAN HYCELA) [id number] MG -UT/13.4ML Plan Clean Up Anastacio Gomez Jr., MD 8 of 9 cycles started ORAL CHEMO TREATMENT Plan Name Start Date Discontinue Date Treatment Medications Discontinue Reason Plan Provider Cycles CLL - VENETOCLAX (VENCLEXTA) ORAL CHEMO - [facility] 9 01/21/2021 venetoclax (VENCLEXTA THERAPY PACK)venetocla x (VENCLEXTA) Plan Clean Up Anastacio Gomez Jr., MD Treatment not started Resolved Problems Problem Noted Date Diagnosed Date Resolved Date Neutropenic fever 03/13/2020 03/16/2020
[2024-12-22 21:09] LABS: Magnesium 2.3 mg/dL (1.6-2.3)
[2024-12-22 21:15] LABS: Add Urine Microscopic? NO; Appearance Urine Clear (Clear); Bilirubin Urine Negative (Negative); Blood Urine Negative (Negative); Color Urine Yellow (Yellow); Glucose Urine UA Negative (Negative); Ketones Urine Trace mg/dL (Negative); Leukocyte Esterase Ur Negative LEU/UL (Negative); Nitrate Urine Negative (Negative); Protein Urine Negative (Negative)
[2024-12-22 21:42] LABS: Troponin I < 0.012 ng/mL (0.000-0.034)
== END 2024-12-22 22:20 | disposition home or self-care (01) ==
PROVIDERS: Emergency Medicine; Emergency Provider Physician Assistant
DX: R07.89 Other chest pain (principal); M79.10 Myalgia, unspecified site; R53.83 Other fatigue; Z20.822 Contact with and (suspected) exposure to COVID-19; I48.91 Unspecified atrial fibrillation; R00.1 Bradycardia, unspecified
CPT/HCPCS: 36415; 71046; 80053; 81003; 83690; 83735; 84484; 85025; 85610; 85730; 87637; 93005; 99284; A9270